=== PATIENT | male | born 1930 | race Caucasian/White ===

== ENCOUNTER 2017-01-29 12:14 | Emergency (ER) | payer MEDICARE, OTHER ==
[~2017-01-29] VITALS: Ht 172.7 cm; Wt 73.8 kg
[~2017-01-29 12:14] MED LIST: ACET325T14 PO; ALBU18HF INH; ALBU8.5H5 INH; FLUT12HF2 INH; LEVO125C2 PO; PRAV10TA2 PO; TIOT18CA INH
[2017-01-29] MEDS ORDERED: ALBUTEROL/IPRATROPIUM 2.5MG/0.5MG, 3 ML NPPB ONE (13:00)
[2017-01-29] MEDS ORDERED: ALBUTEROL/IPRATROPIUM 2.5MG/0.5MG, 3 ML ONE (13:15)
[2017-01-29 13:28] LABS: HEMOGLOBIN 14.1 g/dL (13.7-18.0)
[2017-01-29 13:34] LABS: ASPARTATE AMINO TRANSFERASE 22 U/L (15-37); BLOOD UREA NITROGEN 21 mg/dL (7-18)
[2017-01-29 13:40] LABS: IS PT STATUS REG ER OR PRE ER? YES
[2017-01-29] MEDS ORDERED: SODIUM CHLORIDE 0.9%, 500ML IVBOLUS ONE (14:30)
[2017-01-29 16:28] VITALS: BP 138/68
[2017-01-29] MEDS ORDERED: OMNIPAQUE 350 MG/ML, 100ML BOTTLE ONE (16:35)
== END 2017-01-29 16:31 | disposition home or self-care (01) ==
LOC: ED 14:26
DX: J44.1 Chronic obstructive pulmonary disease with (acute) exacerbation (principal); J18.1 Lobar pneumonia, unspecified organism; Z87.891 Personal history of nicotine dependence
CPT/HCPCS: 36415; 71010; 71275; 80053; 83880; 84484; 85025; 85379; 85610; 85730; 93005; 94640; 96360; 99285; J7040; J7512; Q9967; J7620

== ENCOUNTER → 2017-06-08 | Outpatient (CLI) | payer MEDICARE, OTHER ==
[~2017-06-08] MED LIST changes: +LEVO75TA5 PO; +PRAV20TA2 PO
[2017-06-08 14:05] LABS: HEMATOCRIT 43.3 % (39.2-51.8); HEMOGLOBIN 14.4 g/dL (13.7-18.0); WHITE BLOOD COUNT 6.9 x10^3/uL (3.4-10)
[2017-06-08 14:16] LABS: ASPARTATE AMINO TRANSFERASE 20 U/L (15-37); BLOOD UREA NITROGEN 25 mg/dL (7-18)
== END | disposition home or self-care (01) ==
LOC: STAR 13:11
PROVIDERS: ATTEND Surgery
DX: Z01.818 Encounter for other preprocedural examination (principal); R94.31 Abnormal electrocardiogram [ECG] [EKG]
CPT/HCPCS: 36415; 80053; 85025; 93005

== ENCOUNTER 2017-06-12 07:18 | Inpatient (IN) | payer MEDICARE, OTHER ==
[~2017-06-12] VITALS: Ht 171.4 cm; Wt 84.8 kg
[2017-06-12 07:52] VITALS: BP 149/81
[2017-06-12] MEDS ORDERED: LACTATED RINGERS 1,000 ML IV SCH (07:52)
[2017-06-12] MEDS ORDERED: EPINEPHRINE 1 MG/ML, 1ML ONE ×2 (08:57→10:43)
[2017-06-12] MEDS ORDERED: BUPIVACAINE/PF 0.5% ONE ×2 (08:57→10:43)
[2017-06-12] MEDS ORDERED: EPHEDRINE 50 MG/ML, 1ML ONE (09:32)
[2017-06-12] MEDS ORDERED: ONDANSETRON 2MG/ML, 2ML ONE (09:32)
[2017-06-12] MEDS ORDERED: CEFAZOLIN 1,000 MG ONE ×2 (09:32→13:44)
[2017-06-12] MEDS ORDERED: ROCURONIUM 10 MG/ML ONE (09:32)
[2017-06-12] MEDS ORDERED: PROPOFOL 10 MG/ML, 20ML ONE ×2 (09:32→13:44)
[2017-06-12] MEDS ORDERED: MIDAZOLAM 1 MG/ML, 2ML ONE (09:32)
[2017-06-12] MEDS ORDERED: NEOSTIGMINE 1 MG/ML, 10ML ONE (09:32)
[2017-06-12] MEDS ORDERED: DEXAMETHASONE 4 MG/ML, 1ML ONE (09:32)
[2017-06-12] MEDS ORDERED: GLYCOPYRROLATE 0.2MG/1ML ONE (09:32)
[2017-06-12] MEDS ORDERED: FENTANYL PF 100 MCG/2ML ONE ×5 (09:33→13:18)
[2017-06-12] MEDS ORDERED: LABETALOL 5MG/ML, 20ML ONE (11:27)
[2017-06-12] MEDS ORDERED: HYDROmorphone 1 MG/ML, 1ML ONE ×2 (11:27→13:12)
[2017-06-12] MEDS: LABETALOL 5MG/ML, 20ML IV PRN ×4 (11:29→12:10)
[2017-06-12] MEDS ORDERED: EPHEDRINE 50 MG/ML, 1ML IVPush PRN ×2 (11:30→15:00)
[2017-06-12] MEDS ORDERED: METOCLOPRAMIDE 5 MG/ML, 2ML IV PRN (11:30)
[2017-06-12] MEDS ORDERED: MIDAZOLAM 1 MG/ML, 2ML IV PRN (11:30)
[2017-06-12] MEDS ORDERED: ALBUTEROL SULFATE 2.5 MG/3 ML NPPB PRN ×2 (11:30→15:00)
[2017-06-12] MEDS ORDERED: OXYcodone 5 MG/5 ML ORAL.SOL UDC PO PRN ×2 (11:30→15:00)
[2017-06-12] MEDS ORDERED: MEPERIDINE/PF 25MG/0.5ML IVPush PRN (11:30)
[2017-06-12] MEDS ORDERED: ONDANSETRON 2MG/ML, 2ML IVPush PRN ×3 (11:30→20:30)
[2017-06-12] MEDS: HYDROmorphone 1 MG/ML, 1ML IV PRN ×2 (11:31→11:40)
[2017-06-12] MEDS ORDERED: OXYcodone 5 MG/5 ML ORAL.SOL UDC ONE (11:40)
[2017-06-12] MEDS ORDERED: hydrALAzine 20 MG/ML, 1ML ONE (12:05)
[2017-06-12] MEDS: hydrALAzine 20 MG/ML, 1ML IV PRN ×2 (12:06→12:26)
[2017-06-12] MEDS: FENTANYL PF 100 MCG/2ML IV PRN ×2 (12:20→12:27)
[2017-06-12] MEDS ORDERED: THROMBIN 5,000 UNIT VIAL TP ONE (13:16)
[2017-06-12] MEDS ORDERED: SUCCINYLCHOLINE 20 MG/ML, 10ML ONE (13:44)
[2017-06-12] MEDS ORDERED: HYDROcodone/APAP 7.5-325MG/15ML UDC PO PRN (15:00)
[2017-06-12] MEDS ORDERED: PROMETHAZINE 25 MG/ML, 1ML IV PRN (15:00)
[2017-06-12] MEDS ORDERED: HYDROmorphone 1 MG/ML, 1ML IV PRN (15:00)
[2017-06-12] MEDS ORDERED: ALBUTEROL/IPRATROPIUM 2.5MG/0.5MG, 3 ML NPPB PRN (15:00)
[2017-06-12] MEDS ORDERED: ACETAMINOPHEN 325 MG TABLET PO PRN (15:00)
[2017-06-12] MEDS ORDERED: hydrALAzine 20 MG/ML, 1ML IV PRN (15:00)
[2017-06-12] MEDS ORDERED: LABETALOL 5MG/ML, 20ML IV PRN (15:00)
[2017-06-12] MEDS ORDERED: FENTANYL PF 100 MCG/2ML IV PRN (15:00)
[2017-06-12 16:00] VITALS: BP 149/75
[2017-06-12] MEDS ORDERED: HYDROmorphone 2MG TABLET PO PRN (20:30)
[2017-06-12] MEDS ORDERED: KETOROLAC 30 MG/1 ML IV PRN (20:30)
[2017-06-12] MEDS ORDERED: OXYcodone/APAP 5/325MG TABLET PO PRN (20:30)
[2017-06-12] MEDS ORDERED: MORPHINE SULFATE 4 MG/ML, 1ML IVPush PRN (20:30)
[2017-06-12 20:44] VITALS: BP 103/49
[2017-06-12] MEDS: SODIUM CHLORIDE FLUSH 10ML SYR IVF SCH (22:05)
[2017-06-12] MEDS: LACTATED RINGERS 1,000 ML IV SCH (22:05)
[2017-06-13 00:13] VITALS: BP 116/61
[2017-06-13 04:15] VITALS: BP 120/67
[2017-06-13 04:51] LABS: HEMATOCRIT 33.2 % (39.2-51.8); HEMOGLOBIN 10.9 g/dL (13.7-18.0)
[2017-06-13] MEDS: LACTATED RINGERS 1,000 ML IV SCH ×2 (06:30→16:30)
[2017-06-13] MEDS: SODIUM CHLORIDE FLUSH 10ML SYR IVF SCH (09:00)
[2017-06-13 09:28] VITALS: BP 121/72
[2017-06-13 13:25] VITALS: BP 127/77
== END 2017-06-13 18:22 | disposition home or self-care (01) | DRG 352 ==
LOC: OUT 07:18 → 4NOR 15:55 → OUT 16:20 → OBSVTOIN 17:04
PROVIDERS: ADMIT Surgery; ATTEND Surgery
PROC: 0KCL0ZZ Extirpation of Matter from Left Abdomen Muscle, Open Approach (ICD-10-PCS; 2017-06-12)
PROC: 0W3F0ZZ Control Bleeding in Abdominal Wall, Open Approach (ICD-10-PCS; 2017-06-12)
PROC: 0YU60JZ Supplement Left Inguinal Region with Synthetic Substitute, Open Approach (ICD-10-PCS; principal; 2017-06-12 09:30)
PROC: 0YJ64ZZ Inspection of Left Inguinal Region, Percutaneous Endoscopic Approach (ICD-10-PCS; 2017-06-12 09:30)
DX: K40.90 Unilateral inguinal hernia, without obstruction or gangrene, not specified as recurrent (principal); J44.9 Chronic obstructive pulmonary disease, unspecified; Z80.8 Family history of malignant neoplasm of other organs or systems; Z82.49 Family history of ischemic heart disease and other diseases of the circulatory system; S30.1XXA Contusion of abdominal wall, initial encounter
CPT/HCPCS: 36415; 82330; 82803; 82947; 84132; 84295; 85014; 85025; J0171; J0690; J1100; J1170; J2250; J2405; J2704; J2710; J3010; J3490; C1727; C1781; G0378; J0330; J0360; J7120

== ENCOUNTER 2017-09-04 09:57 | Inpatient (IN) | payer MEDICARE, OTHER ==
[~2017-09-04] VITALS: Ht 170.2 cm; Wt 77.1 kg
[2017-09-04] MEDS ORDERED: ALBUTEROL/IPRATROPIUM 2.5MG/0.5MG, 3 ML NEB STA (10:29)
[2017-09-04] MEDS ORDERED: SODIUM CHLORIDE 0.9% 1,000ML IVBOLUS ONE (11:00)
[2017-09-04] MEDS ORDERED: methylPREDNISolone SOD SUCC 125 MG/2 ML IVPush ONE (11:00)
[2017-09-04] MEDS ORDERED: methylPREDNISolone SOD SUCC 125 MG/2 ML ONE (11:02)
[2017-09-04] MEDS ORDERED: ALBUTEROL/IPRATROPIUM 2.5MG/0.5MG, 3 ML ONE ×3 (11:44→18:44)
[2017-09-04] MEDS ORDERED: ALBUTEROL 0.5%, 20ML ONE (11:54)
[2017-09-04 11:58] LABS: IS PT STATUS REG ER OR PRE ER? YES
[2017-09-04 12:12] LABS: HEMATOCRIT 44.3 % (39.2-51.8); HEMOGLOBIN 14.5 g/dL (13.7-18.0); WHITE BLOOD COUNT 13.1 x10^3/uL (3.4-10)
[2017-09-04] MEDS ORDERED: ALBUTEROL 0.5%, 20ML NPPB SCH (12:30)
[2017-09-04 12:36] LABS: BLOOD UREA NITROGEN 39 mg/dL (7-18)
[2017-09-04 12:46] LABS: DIFF TOTAL CELLS COUNTED 100 CELL DIFF
[2017-09-04 12:48] LABS: VERIFY COUNTS? YES
[2017-09-04] MEDS ORDERED: CEFTRIAXONE PMX 1GM/50ML 50 ML ONE (13:54)
[2017-09-04] MEDS ORDERED: AZITHROMYCIN 500 MG in SODIUM CHLORIDE 0.9% 250 ML IV ONE (14:00)
[2017-09-04] MEDS ORDERED: CEFTRIAXONE PMX 1GM/50ML 50 ML IV ONE (14:00)
[2017-09-04] MEDS ORDERED: morphine SULFATE 10 MG/ML, 1ML IVPush PRN (15:00)
[2017-09-04] MEDS ORDERED: ONDANSETRON 2MG/ML, 2ML IVPush PRN (15:00)
[2017-09-04] MEDS ORDERED: CEFTRIAXONE PMX 2GM/50ML 50 ML IV SCH (15:00)
[2017-09-04] MEDS: methylPREDNISolone SOD SUCC 125 MG/2 ML IVPush SCH ×2 (15:00→23:03)
[2017-09-04] MEDS: AZITHROMYCIN 500 MG in SODIUM CHLORIDE 0.9% 250 ML IV SCH (15:00)
[2017-09-04] MEDS ORDERED: hydrALAzine 20 MG/ML, 1ML IVPush PRN (15:00)
[2017-09-04] MEDS ORDERED: HYDROcodone/APAP 5/325 TABLET PO PRN (15:00)
[2017-09-04] MEDS ORDERED: ACETAMINOPHEN 325 MG TABLET PO PRN (15:00)
[2017-09-04] MEDS: ALBUTEROL/IPRATROPIUM 2.5MG/0.5MG, 3 ML NPPB SCH ×3 (15:20→23:28)
[2017-09-04] MEDS ORDERED: SODIUM CHLORIDE 0.9% 1,000 ML IV SCH (15:30)
[2017-09-04] MEDS: SODIUM CHLORIDE 0.9% 1,000 ML IV SCH (16:30)
[2017-09-04] MEDS ORDERED: DILTIAZEM 5 MG/ML, 5ML ONE (19:40)
[2017-09-04] MEDS ORDERED: ALBUTEROL/IPRATROPIUM 2.5MG/0.5MG, 3 ML NPPB SCH (20:00)
[2017-09-04] MEDS ORDERED: DILTIAZEM 5 MG/ML, 5ML IVPush ONE (20:00)
[2017-09-04] MEDS: DILTIAZEM 125 MG in SODIUM CHLORIDE 0.9% 100 ML IV SCH (20:58)
[2017-09-04 21:59] VITALS: BP 137/70
[2017-09-04] MEDS ORDERED: MAGNESIUM SULFATE PMX 2GM/50ML 50 ML IV ONE (22:30)
[2017-09-04] MEDS: PRAVASTATIN 20 MG TABLET PO SCH (23:03)
[2017-09-04] MEDS: ENOXAPARIN 30 MG/0.3 ML SQ SCH (23:04)
[2017-09-05 01:55] VITALS: BP 132/71
[2017-09-05] MEDS: ALBUTEROL/IPRATROPIUM 2.5MG/0.5MG, 3 ML NPPB SCH ×5 (04:41→18:48)
[2017-09-05] MEDS: methylPREDNISolone SOD SUCC 125 MG/2 ML IVPush SCH ×4 (05:07→22:34)
[2017-09-05] MEDS: LEVOTHYROXINE 75 MCG TABLET PO SCH (05:07)
[2017-09-05 05:56] LABS: HEMATOCRIT 38.9 % (39.2-51.8); HEMOGLOBIN 12.9 g/dL (13.7-18.0); WHITE BLOOD COUNT 10.8 x10^3/uL (3.4-10)
[2017-09-05 06:25] LABS: ASPARTATE AMINO TRANSFERASE 17 U/L (15-37); BLOOD UREA NITROGEN 36 mg/dL (7-18)
[2017-09-05] MEDS: DILTIAZEM 125 MG in SODIUM CHLORIDE 0.9% 100 ML IV SCH (08:24)
[2017-09-05 09:38] VITALS: BP 110/59
[2017-09-05] MEDS: SODIUM CHLORIDE 0.9% 1,000 ML IV SCH (11:16)
[2017-09-05 13:05] VITALS: BP 119/54
[2017-09-05] MEDS: CEFTRIAXONE 2,000 MG in DEXTROSE 5% 50 ML IV SCH (14:35)
[2017-09-05] MEDS: AZITHROMYCIN 500 MG in SODIUM CHLORIDE 0.9% 250 ML IV SCH (15:24)
[2017-09-05 16:56] VITALS: BP 144/65
[2017-09-05] MEDS: DILTIAZEM 30 MG TABLET PO SCH ×2 (16:58→22:17)
[2017-09-05] MEDS: GUAIFENESIN 200 MG TABLET PO SCH ×2 (16:58→22:17)
[2017-09-05 20:45] VITALS: BP 149/65
[2017-09-05] MEDS: ENOXAPARIN 30 MG/0.3 ML SQ SCH (22:16)
[2017-09-05] MEDS: PRAVASTATIN 20 MG TABLET PO SCH (22:16)
[2017-09-06] MEDS: DILTIAZEM 30 MG TABLET PO SCH ×6 (01:54→22:45)
[2017-09-06 02:11] VITALS: BP 138/66
[2017-09-06] MEDS: SODIUM CHLORIDE 0.9% 1,000 ML IV SCH (03:18)
[2017-09-06 05:49] LABS: BLOOD UREA NITROGEN 37 mg/dL (7-18)
[2017-09-06] MEDS: LEVOTHYROXINE 75 MCG TABLET PO SCH (06:32)
[2017-09-06] MEDS: methylPREDNISolone SOD SUCC 125 MG/2 ML IVPush SCH ×4 (06:32→21:24)
[2017-09-06 07:07] VITALS: BP 145/62
[2017-09-06] MEDS: GUAIFENESIN 200 MG TABLET PO SCH ×3 (09:05→21:31)
[2017-09-06] MEDS: ALBUTEROL/IPRATROPIUM 2.5MG/0.5MG, 3 ML NPPB SCH ×5 (09:47→22:10)
[2017-09-06 13:01] VITALS: BP 138/71
[2017-09-06] MEDS: CEFTRIAXONE 2,000 MG in DEXTROSE 5% 50 ML IV SCH (15:12)
[2017-09-06] MEDS: AZITHROMYCIN 500 MG in SODIUM CHLORIDE 0.9% 250 ML IV SCH (15:12)
[2017-09-06 19:49] VITALS: BP 137/66
[2017-09-06 20:00] VITALS: BP 136/63
[2017-09-06] MEDS ORDERED: PRAVASTATIN 40 MG TABLET ONE (21:15)
[2017-09-06] MEDS: ENOXAPARIN 30 MG/0.3 ML SQ SCH (21:27)
[2017-09-06] MEDS: PRAVASTATIN 20 MG TABLET PO SCH (21:32)
[2017-09-07 02:15] VITALS: BP 153/82
[2017-09-07] MEDS: DILTIAZEM 30 MG TABLET PO SCH ×5 (02:52→20:37)
[2017-09-07] MEDS: methylPREDNISolone SOD SUCC 125 MG/2 ML IVPush SCH ×4 (02:53→20:36)
[2017-09-07 05:25] LABS: HEMATOCRIT 35.3 % (39.2-51.8); HEMOGLOBIN 11.3 g/dL (13.7-18.0); WHITE BLOOD COUNT 9.8 x10^3/uL (3.4-10)
[2017-09-07 05:31] LABS: ASPARTATE AMINO TRANSFERASE 22 U/L (15-37); BLOOD UREA NITROGEN 44 mg/dL (7-18)
[2017-09-07] MEDS: LEVOTHYROXINE 75 MCG TABLET PO SCH (06:35)
[2017-09-07] MEDS: ALBUTEROL/IPRATROPIUM 2.5MG/0.5MG, 3 ML NPPB SCH ×5 (07:29→22:15)
[2017-09-07 07:42] VITALS: BP 153/66
[2017-09-07] MEDS: GUAIFENESIN 200 MG TABLET PO SCH ×3 (08:12→20:37)
[2017-09-07 11:43] VITALS: BP 149/62
[2017-09-07] MEDS: CEFTRIAXONE 2,000 MG in SODIUM CHLORIDE 0.9% 50 ML IV SCH (12:22)
[2017-09-07] MEDS ORDERED: SODIUM CHLORIDE 0.9% 1,000 ML IV SCH (13:30)
[2017-09-07] MEDS: SODIUM CHLORIDE 0.9% 1,000 ML IV SCH (13:30)
[2017-09-07 14:08] VITALS: BP 152/67
[2017-09-07] MEDS: AZITHROMYCIN 500 MG in SODIUM CHLORIDE 0.9% 250 ML IV SCH (15:05)
[2017-09-07 20:30] VITALS: BP 143/68
[2017-09-07] MEDS: PRAVASTATIN 20 MG TABLET PO SCH (20:37)
[2017-09-07] MEDS: ENOXAPARIN 30 MG/0.3 ML SQ SCH (20:38)
[2017-09-08 00:24] VITALS: BP 152/71
[2017-09-08] MEDS: DILTIAZEM 30 MG TABLET PO SCH ×7 (00:34→22:51)
[2017-09-08] MEDS: SODIUM CHLORIDE 0.9% 1,000 ML IV SCH (03:15)
[2017-09-08] MEDS: methylPREDNISolone SOD SUCC 125 MG/2 ML IVPush SCH ×4 (03:16→21:39)
[2017-09-08] MEDS: ALBUTEROL/IPRATROPIUM 2.5MG/0.5MG, 3 ML NPPB SCH ×5 (03:30→21:24)
[2017-09-08] MEDS: LEVOTHYROXINE 75 MCG TABLET PO SCH (04:50)
[2017-09-08 05:49] LABS: WHITE BLOOD COUNT 11.1 x10^3/uL (3.4-10)
[2017-09-08] MEDS ORDERED: POTASSIUM CHLORIDE 10 MEQ TABLET.ER PO SCH (07:00)
[2017-09-08] MEDS ORDERED: FUROSEMIDE 20 MG/2 ML IV ONE (07:00)
[2017-09-08 07:20] LABS: BLOOD UREA NITROGEN 45 mg/dL (7-18)
[2017-09-08 07:59] VITALS: BP 140/50
[2017-09-08] MEDS: GUAIFENESIN 200 MG TABLET PO SCH ×3 (09:00→21:39)
[2017-09-08] MEDS: CEFTRIAXONE 2,000 MG in SODIUM CHLORIDE 0.9% 50 ML IV SCH (11:45)
[2017-09-08 11:46] VITALS: BP 150/72
[2017-09-08] MEDS: AZITHROMYCIN 500 MG in SODIUM CHLORIDE 0.9% 250 ML IV SCH (15:21)
[2017-09-08 15:30] VITALS: BP 152/78
[2017-09-08] MEDS ORDERED: ACETAMINOPHEN 325 MG TABLET PO PRN (18:30)
[2017-09-08] MEDS ORDERED: HYDROcodone/APAP 5/325 TABLET PO PRN (18:30)
[2017-09-08] MEDS ORDERED: hydrALAzine 20 MG/ML, 1ML IVPush PRN (18:30)
[2017-09-08 19:02] VITALS: BP 156/66
[2017-09-08] MEDS: PRAVASTATIN 20 MG TABLET PO SCH (21:39)
[2017-09-08] MEDS: ENOXAPARIN 30 MG/0.3 ML SQ SCH (21:40)
[2017-09-09 00:43] VITALS: BP 150/68
[2017-09-09] MEDS: ALBUTEROL/IPRATROPIUM 2.5MG/0.5MG, 3 ML NPPB SCH ×5 (02:43→21:59)
[2017-09-09] MEDS: DILTIAZEM 30 MG TABLET PO SCH ×6 (05:00→22:30)
[2017-09-09] MEDS: methylPREDNISolone SOD SUCC 125 MG/2 ML IVPush SCH ×2 (05:00→08:37)
[2017-09-09 05:42] LABS: BLOOD UREA NITROGEN 48 mg/dL (7-18)
[2017-09-09 06:05] LABS: HEMATOCRIT 39.2 % (39.2-51.8); HEMOGLOBIN 13.1 g/dL (13.7-18.0); WHITE BLOOD COUNT 12.1 x10^3/uL (3.4-10)
[2017-09-09 06:07] LABS: DIFF TOTAL CELLS COUNTED 100 CELL DIFF
[2017-09-09] MEDS: LEVOTHYROXINE 75 MCG TABLET PO SCH (06:14)
[2017-09-09 06:16] LABS: VERIFY COUNTS? YES
[2017-09-09 07:57] VITALS: BP 136/64
[2017-09-09] MEDS: GUAIFENESIN 200 MG TABLET PO SCH ×3 (08:31→20:55)
[2017-09-09] MEDS: CEFTRIAXONE 2,000 MG in SODIUM CHLORIDE 0.9% 50 ML IV SCH (10:07)
[2017-09-09] MEDS: CIPROFLOXACIN 500 MG TABLET PO SCH ×2 (12:46→22:29)
[2017-09-09 13:31] VITALS: BP 148/70
[2017-09-09 19:52] VITALS: BP 138/62
[2017-09-09] MEDS ORDERED: morphine SULFATE 10 MG/ML, 1ML IVPush PRN (20:30)
[2017-09-09] MEDS ORDERED: ONDANSETRON 2MG/ML, 2ML IVPush PRN (20:30)
[2017-09-09] MEDS ORDERED: ACETAMINOPHEN 325 MG TABLET PO PRN (20:30)
[2017-09-09] MEDS ORDERED: PRAVASTATIN 40 MG TABLET ONE (20:51)
[2017-09-09] MEDS: ENOXAPARIN 30 MG/0.3 ML SQ SCH (20:56)
[2017-09-09] MEDS: PRAVASTATIN 20 MG TABLET PO SCH (21:06)
[2017-09-10 02:56] VITALS: BP 155/72
[2017-09-10] MEDS: DILTIAZEM 30 MG TABLET PO SCH ×6 (03:00→21:47)
[2017-09-10 05:48] LABS: HEMOGLOBIN 12.4 g/dL (13.7-18.0)
[2017-09-10 06:01] LABS: BLOOD UREA NITROGEN 51 mg/dL (7-18)
[2017-09-10 06:15] LABS: DIFF TOTAL CELLS COUNTED 100 CELL DIFF
[2017-09-10 06:21] LABS: VERIFY COUNTS? YES
[2017-09-10 06:23] LABS: ANISOCYTOSIS 1+
[2017-09-10] MEDS: LEVOTHYROXINE 75 MCG TABLET PO SCH (06:47)
[2017-09-10] MEDS: ALBUTEROL/IPRATROPIUM 2.5MG/0.5MG, 3 ML NPPB SCH ×5 (07:40→23:14)
[2017-09-10 08:03] VITALS: BP 151/68
[2017-09-10] MEDS: GUAIFENESIN 200 MG TABLET PO SCH ×3 (08:50→20:18)
[2017-09-10] MEDS ORDERED: CEFTRIAXONE 2,000 MG in SODIUM CHLORIDE 0.9% 50 ML IV SCH (09:41)
[2017-09-10] MEDS: CIPROFLOXACIN 500 MG TABLET PO SCH ×2 (10:34→21:47)
[2017-09-10 12:24] VITALS: BP 138/69
[2017-09-10 20:08] VITALS: BP 148/69
[2017-09-10] MEDS: PRAVASTATIN 20 MG TABLET PO SCH (20:18)
[2017-09-10] MEDS: ENOXAPARIN 30 MG/0.3 ML SQ SCH (20:18)
[2017-09-11 01:55] VITALS: BP 159/71
[2017-09-11] MEDS: DILTIAZEM 30 MG TABLET PO SCH ×3 (01:59→10:20)
[2017-09-11 05:02] LABS: HEMATOCRIT 36.1 % (39.2-51.8); WHITE BLOOD COUNT 13.1 x10^3/uL (3.4-10)
[2017-09-11 05:13] LABS: BLOOD UREA NITROGEN 50 mg/dL (7-18)
[2017-09-11 05:47] LABS: DIFF TOTAL CELLS COUNTED 100 CELL DIFF
[2017-09-11 05:49] LABS: VERIFY COUNTS? YES
[2017-09-11 05:50] LABS: ANISOCYTOSIS 1+
[2017-09-11] MEDS: ALBUTEROL/IPRATROPIUM 2.5MG/0.5MG, 3 ML NPPB SCH ×2 (06:00→10:00)
[2017-09-11] MEDS: LEVOTHYROXINE 75 MCG TABLET PO SCH (06:06)
[2017-09-11 07:25] VITALS: BP_SYST 147; BP_SYST 95; BP_DIAS 61; BP_DIAS 65
[2017-09-11 08:17] VITALS: BP 156/71
[2017-09-11] MEDS: GUAIFENESIN 200 MG TABLET PO SCH (08:23)
[2017-09-11] MEDS ORDERED: CEFTRIAXONE 2,000 MG in DEXTROSE 5% 50 ML IV SCH (10:00)
[2017-09-11] MEDS: CIPROFLOXACIN 500 MG TABLET PO SCH (10:20)
[2017-09-11] MEDS ORDERED: FLUTICASONE/VILANTEROL 200-25MCG/INH INH SCH (10:30)
[2017-09-11] MEDS ORDERED: PIPERACILLIN/TAZO/PMX 3.375GM 50 ML IV SCH (10:30)
[2017-09-11] MEDS ORDERED: PRED10TA PO (10:57)
[2017-09-11] MEDS ORDERED: CEFD300C37 PO (10:57)
[2017-09-11] MEDS ORDERED: LOSA25TA5 PO (10:57)
[2017-09-11] MEDS ORDERED: CIPR500T3 PO (10:57)
[2017-09-11] MEDS ORDERED: DOXY100T10 PO (10:57)
[2017-09-11] MEDS ORDERED: HYDR25TA6 PO (11:01)
== END 2017-09-11 13:20 | disposition home or self-care (01) | DRG 871 ==
LOC: ED 12:05 → SUATTDRO 14:22 → EDIP 14:26 → 4WST 20:27 → EDIP 20:31 → 5SO 21:35 → DCLOUNGE 09-11 13:15
PROVIDERS: ADMIT Hospitalist; ATTEND Internal Medicine
DX: A41.9 Sepsis, unspecified organism (principal); E43 Unspecified severe protein-calorie malnutrition; J96.21 Acute and chronic respiratory failure with hypoxia; J10.08 Influenza due to other identified influenza virus with other specified pneumonia; J81.1 Chronic pulmonary edema; I13.0 Hypertensive heart and chronic kidney disease with heart failure and stage 1 through stage 4 chronic kidney disease, or unspecified chronic kidney disease; J18.9 Pneumonia, unspecified organism; J15.9 Unspecified bacterial pneumonia; I50.30 Unspecified diastolic (congestive) heart failure; I07.1 Rheumatic tricuspid insufficiency; J44.0 Chronic obstructive pulmonary disease with (acute) lower respiratory infection; J44.1 Chronic obstructive pulmonary disease with (acute) exacerbation; N39.0 Urinary tract infection, site not specified; I35.8 Other nonrheumatic aortic valve disorders; N18.3 Chronic kidney disease, stage 3 (moderate); E03.9 Hypothyroidism, unspecified; E78.5 Hyperlipidemia, unspecified; Z80.0 Family history of malignant neoplasm of digestive organs; B96.5 Pseudomonas (aeruginosa) (mallei) (pseudomallei) as the cause of diseases classified elsewhere; F17.201 Nicotine dependence, unspecified, in remission; Z66 Do not resuscitate; K57.90 Diverticulosis of intestine, part unspecified, without perforation or abscess without bleeding; Z82.49 Family history of ischemic heart disease and other diseases of the circulatory system; Z85.72 Personal history of non-Hodgkin lymphomas; Z86.010 Personal history of colon polyps; Z90.49 Acquired absence of other specified parts of digestive tract; Z92.21 Personal history of antineoplastic chemotherapy; Z92.3 Personal history of irradiation; Z99.81 Dependence on supplemental oxygen; Z68.26 Body mass index [BMI] 26.0-26.9, adult
CPT/HCPCS: 36415; 71010; 71020; 78582; 80048; 80053; 81001; 82040; 83605; 83735; 83880; 84100; 84145; 84443; 84484; 85025; 85379; 87040; 87070; 87077; 87086; 87186; 87205; 93005; 94640; 94644; 96361; 96365; 96366; 96368; 96375; C8929; J0456; J0696; J1650; J2405; J7620; A9540; A9558; C9898; J1940; J2930; J3475; J7030; J7050; J7512

== ENCOUNTER 2019-04-03 17:57 | Emergency (ER) | payer MEDICARE, OTHER ==
[~2019-04-03] VITALS: Ht 162.6 cm; Wt 71.1 kg
[~2019-04-03 17:57] MED LIST changes: +ALBU2.5V NEB; +CEFD300C37 PO; +CIPR500T3 PO; +DOXY100T10 PO; +GUAI100G2 PO; +HYDR25TA6 PO; +LOSA25TA25 PO; +MULT-6 PO; +NIAC500T10 PO; +PRED10TA PO; +PSYL0.5243 PO
--- NOTE | 2019-04-03 18:38 | NUR ---
ASSUMED CARE OF PT. PT HAS EXISTING PORT, LAB REQUESTING RN DRAW THROUGH PORT. US AT BEDSIDE TO COMPLETE EXAM. PT APPROPRIATE WITH NO SIGNS OF DISTRESS AT THIS TIME. WILL CONTINUE TO MONITOR
--- NOTE | 2019-04-03 18:45 | NUR ---
US AT BEDSIDE TO COMPLETE US
--- NOTE | 2019-04-03 19:33 | NUR ---
PORT ACCESSED UNDER STERILE PROCEDURE. BLOOD SAMPLE OBTAINED FOR LABS. PORT FLUSHED AND CLAMPED AT THIS TIME.
[2019-04-03 19:34] LABS: BASOPHILS # (AUTO) 0.03 x10^3/uL (0-0.1); BASOPHILS % (AUTO) 0 % (0-1); EOSINOPHILS # (AUTO) 0.69 x10^3/uL (0-0.4); EOSINOPHILS % (AUTO) 9 % (1-7); LYMPHOCYTES # (AUTO) 2.66 x10^3/uL (1-3.4); LYMPHOCYTES % (AUTO) 34 % (22-44); MD NO; MEAN CORPUSCULAR HEMOGLOBIN 29.5 pg (27.5-34.5); MEAN CORPUSCULAR HGB CONC 32.9 g/dL (33.2-36.2); MEAN CORPUSCULAR VOLUME 89.6 fL (81-97); MONOCYTES % (AUTO) 18 % (2-9); NEUTROPHILS # (AUTO) 3.14 x10^3/uL (1.8-6.8); NEUTROPHILS % (AUTO) 40 % (42-75); PLATELET COUNT 154 x10^3/uL (130-400); RED BLOOD COUNT 4.38 x10^6/uL (4.38-5.82); RED CELL DISTRIBUTION WIDTH 14.4 % (9.4-14.8)
--- NOTE | 2019-04-03 19:34 | NUR ---
PT ADVISED OF NEED FOR URINE. URINAL LEFT AT BEDSIDE TO OBTAIN SAMPLE
[2019-04-03 19:45] LABS: ALANINE AMINOTRANSFERASE 24 U/L (12-78); ALBUMIN 3.6 g/dL (3.4-5.0); ANION GAP 7 mmol/L (5-15); CALCIUM 8.7 mg/dL (8.5-10.1); CHLORIDE 106 mmol/L (98-107); CREATININE 2.71 mg/dL (0.7-1.3)
[2019-04-03 19:48] LABS: ALKALINE PHOSPHATASE 131 U/L (45-117); BILIRUBIN,TOTAL 0.3 mg/dL (0.2-1.0); TOTAL PROTEIN 6.5 g/dL (6.4-8.2)
--- NOTE | 2019-04-03 20:03 | NUR ---
URINE WALKED TO LAB FOR ANALYSIS
[2019-04-03 20:28] LABS: CULTURE INDICATED? YES; MICROSCOPIC INDICATED
--- NOTE | 2019-04-03 20:42 | NUR ---
REPORT FROM ROBYN RODRIGUEZ. PT WAITING FOR LAB RESULTS. PT HAS NO NEEDS AT THIS TIME. CALL LIGHT IN REACH
[2019-04-03 21:00] VITALS: BP 138/74
--- NOTE | 2019-04-03 21:32 | NUR ---
Patient given discharge instructions and they have confirmed that they understand the instructions. Patient ambulatory with steady gait.
== END 2019-04-03 21:36 | disposition home or self-care (01) ==
LOC: ED 21:20
DX: N18.3 Chronic kidney disease, stage 3 (moderate) (principal); J44.9 Chronic obstructive pulmonary disease, unspecified; Z87.891 Personal history of nicotine dependence
CPT/HCPCS: 36415; 76770; 80053; 81001; 85025; 87086; 99284